=== PATIENT | female | born 2000 | race Caucasian/White ===

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

== ENCOUNTER 2020-02-09 01:25 | Emergency (ER) | payer OTHER ==
[~2020-02-09] VITALS: Ht 152.4 cm; Wt 46.3 kg
[2020-02-09 01:33] VITALS: BP 107/71
--- NOTE | 2020-02-09 01:38 | NUR ---
PT IN ER LOBBY
--- NOTE | 2020-02-09 02:02 | NUR ---
PT INFORMED ADMITTING STAFF SHE WOULD BE LEAVING AT THIS TIME. PT LEFT WITHOUT BEING SEEN BY DR GREEN. INFORMED. NO FURTHER CARE PROVIDED.
[2020-02-09 02:03] VITALS: BP 107/71
== END 2020-02-09 01:49 | disposition left against medical advice (07) ==
LOC: MED 01:25
DX: G43.909 Migraine, unspecified, not intractable, without status migrainosus (principal); Z53.21 Procedure and treatment not carried out due to patient leaving prior to being seen by health care provider

== ENCOUNTER 2024-03-29 01:55 | Emergency (ER) | payer OTHER ==
[~2024-03-29] VITALS: Ht 152.4 cm; Wt 55.8 kg
[2024-03-29 02:10] VITALS: BP 109/62; PULSE 74; RESP 16; TEMP 97.4; O2SAT 100
--- NOTE | 2024-03-29 02:12 | NUR ---
PATIENT PRESENTS TO ED WITH C/O POSSIBLY RETAINED CONDOM IN VAGINA . PT STATES SINCE ABOUT 2 HOURS AGO . DENIES N/V/D; SKIN IS PINK/WARM/DRY; AAOX4 WITH EVEN AND STEADY GAIT; LUNGS CLEAR BL; HR EVEN AND REGULAR; PT DENIES ANY FEVER, CP, SOB, OR COUGH AT THIS TIME; PATIENT STATES PAIN OF 0/10 AT THIS TIME; VSS; PATIENT POSITIONED FOR COMFORT; HOB ELEVATED; BEDRAILS UP X2; BED DOWN. ER MD MADE AWARE OF PT STATUS. PMH DENIES NKA
[2024-03-29] MEDS ORDERED: LEVO1.5T39 PO (02:32)
[2024-03-29 02:34] VITALS: BP 109/62; PULSE 74; RESP 16; TEMP 97.4; O2SAT 100
== END 2024-03-29 02:34 | disposition home or self-care (01) ==
LOC: MED 01:55
DX: T19.2XXA Foreign body in vulva and vagina, initial encounter (principal); Z79.899 Other long term (current) drug therapy; X58.XXXA Exposure to other specified factors, initial encounter; Y92.89 Other specified places as the place of occurrence of the external cause; Y93.89 Activity, other specified; Y99.8 Other external cause status
CPT/HCPCS: 99284